=== PATIENT | male | born 1990 | race Caucasian/White ===

== ENCOUNTER 2017-07-31 14:10 | Emergency (ER) | payer BC ==
[2017-07-31] MEDS ORDERED: cefTRIAXone VIAL(*) 250 MG VIAL IM ONE (15:58)
--- NOTE | 2017-07-31 15:58 | UC ---
Complaint Male HPI - HPI Summary HPI Summary: C/O dysuria with penile D/C. Some urgency. Going on 2-3 days. - History of Current Complaint Chief Complaint: UCSTDScreening Stated Complaint: PERSONAL Time Seen by Provider: 07/31/17 15:49 Hx Obtained From: Patient Onset/Duration: Sudden Onset, Lasting Days - 2-3, Still Present Timing: Intermittent Severity Initially: Mild Severity Currently: Mild Location: Penis Character: Burning Aggravating Factor(s): Voiding Alleviating Factor(s): Nothing Associated Signs And Symptoms: Positive: Diaphoresis, Nausea, Penile Discharge. Negative: Back Pain, Fever, Hematuria - Allergies/Home Medications Allergies/Adverse Reactions: Allergies Allergy/AdvReac Type Severity Reaction Status Date / Time No Known Allergies Allergy Verified 07/31/17 15:10 PMH/Surg Hx/FS Hx/Imm Hx Previously Healthy: Yes - Surgical History Surgical History: None - Family History Known Family History: Positive: Cardiac Disease - Social History Occupation: Unemployed Lives: With Family Alcohol Use: Weekly Substance Use Type: None Smoking Status (MU): Never Smoked Tobacco Review of Systems ENT: Sore Throat Genitourinary: Dysuria, Vaginal/Penile Discharge Is Patient Immunocompromised?: No All Other Systems Reviewed And Are Negative: Yes Physical Exam Triage Information Reviewed: Yes Appearance: Well-Appearing, No Pain Distress, Thin Vital Signs: Initial Vital Signs Temp 99.5 F 07/31/17 15:06 Pulse 85 07/31/17 15:06 Resp 16 07/31/17 15:06 BP 114/73 07/31/17 15:06 Pulse Ox 100 07/31/17 15:06 Vital Signs Reviewed: Yes Eyes: Positive: Conjunctiva Clear ENT: Positive: Pharyngeal erythema Neck exam: Normal Respiratory Exam: Normal Cardiovascular Exam: Normal Abdominal Exam: Normal Abdomen Description: Positive: Other: - : testes normal. No urethral discharge. Bowel Sounds: Positive: Present Musculoskeletal Exam: Normal Neurological Exam: Normal Psychological Exam: Normal Skin Exam: Normal Complaint Male Course/Dx - Differential Dx/Diagnosis Differential Diagnosis/HQI/PQRI: Epididymitis, Prostatitis, Urinary Tract Infection Provider Diagnoses: Urethritis Discharge - Discharge Plan Condition: Stable Disposition: HOME Prescriptions: Azithromycin 1,000 mg PO ONCE #2 tab Patient Education Materials: Sexually Transmitted Diseases (ED), Condom Use (ED ), Chlamydia (ED), Ceftriaxone (By injection), Azithromycin (By mouth) Referrals: Margie Umanzor MD [Primary Care Provider] -
[2017-07-31] MEDS ORDERED: Lidocaine 1% MPF* 2 ML VIAL ONE (16:03)
--- NOTE | 2017-08-02 14:27 | UC ---
- Progress Note Progress Note: PLEASE CALL THE PT. WITH THE LAB REPORT + CHLAMYDIA PT. ALREADY HAD TREATMENT WITH ZITHROMAX
== END 2017-07-31 16:29 | disposition home or self-care (01) ==
LOC: UCCORT 14:10
DX: N34.2 Other urethritis (principal); J02.9 Acute pharyngitis, unspecified
CPT/HCPCS: 81003; 87491; 87591; 96372; 99202; G0463; J0696

== ENCOUNTER 2017-09-19 11:52 | Emergency (ER) | payer BC ==
[2017-09-19 13:07] VITALS: BP 115/72
--- NOTE | 2017-09-19 13:16 | UC ---
Complaint Male HPI - HPI Summary HPI Summary: 27 y/o male presents to the urgent care c/o hives and a rash that itches a lot on his both arms and neck. Pt reports he was[place] a [employer] on Tuesday and he slept over. He woke up w/ the rash. Pt also reports he was here at the clinic on 07/31/2017 and Dx w/ Chlamydia and was Tx. However He thinks his girlfriend didn't take the Tx because the clear penile discharge returned for the past week w/ a burning sensation when he urinates - History of Current Complaint Chief Complaint: UCSkin Stated Complaint: PERSONAL/ARMS/NECK SKIN COMPLAINT Time Seen by Provider: 09/19/17 13:14 Hx Obtained From: Patient Onset/Duration: Gradual Onset, Lasting Days - 1 week, Still Present, Worse Since - today Timing: Constant Severity Initially: Mild Severity Currently: Moderate Pain Intensity: 0 Pain Scale Used: 0-10 Numeric Location: Penis - penile clear discharge Character: Burning Aggravating Factor(s): Voiding Alleviating Factor(s): Nothing Associated Signs And Symptoms: Positive: Nausea, Penile Discharge - clear. Negative: Diaphoresis, Back Pain, Fever, Hematuria, Dysuria, Rectal Pain, Vomiting(# Of Episodes =), Penile Swelling - Risk Factors Testicular Torsion: Negative - Allergies/Home Medications Allergies/Adverse Reactions: Allergies Allergy/AdvReac Type Severity Reaction Status Date / Time No Known Allergies Allergy Verified 09/19/17 12:59 Home Medications: Home Medications Miconazole Nitrate [Antifungal] 2 % EX BID 09/19/17 [History Confirmed 09/19/17] PMH/Surg Hx/FS Hx/Imm Hx Previously Healthy: Yes Other GI/ History: Chlamydia - Surgical History Surgical History: None - Family History Known Family History: Positive: Cardiac Disease - Social History Occupation: Student Lives: With Family Alcohol Use: Weekly Substance Use Type: None Smoking Status (MU): Current Some Day Smoker Type: Cigarettes Amount Used/How Often: rare use - Immunization History Vaccination Up to Date: Yes Review of Systems Constitutional: Negative Skin: Rash - B/L arms and neck Eyes: Negative ENT: Negative Respiratory: Negative Cardiovascular: Negative Gastrointestinal: Negative Genitourinary: Frequency, Other - burning on urination Motor: Negative Neurovascular: Negative Musculoskeletal: Negative Neurological: Negative Psychological: Negative Is Patient Immunocompromised?: No All Other Systems Reviewed And Are Negative: Yes Physical Exam - Summary Physical Exam Summary: Vital signs: reviewed General: well developed, well nourished male sitting in the examining table w/o any apparent distress. Head: Normocephalic, no lesions. Eyes: PERRLA, EOM's full, conjunctiva clear, fundi grossly normal. Ears: EAC's clear, TM's normal. Nose: Mucosa normal, no obstruction. Throat: Clear, no exudates, no lesions. Neck: Supple, no masses, no thyromegaly, no bruits. Chest: Lungs clear, no rales, no rhonchi, no wheezes. Heart: RR, no murmurs, no rubs, no gallops. Abdomen: Soft, no tenderness, no masses, BS normal. : Normal, no lesions, clear penile discahrge, non tender to palpation no hernias noted. Back: Normal curvature, no tenderness. Extremities: FROM, no deformities, no edema, no erythema. Neuro: Physiological, no localizing findings. Skin: Normal, no rashes, no lesions noted. Triage Information Reviewed: Yes Vital Signs: Initial Vital Signs Temp 98.9 F 09/19/17 13:00 Pulse 99 09/19/17 13:00 Resp 16 09/19/17 13:00 BP 115/72 09/19/17 13:00 Pulse Ox 99 09/19/17 13:00 Complaint Male Course/Dx - Differential Dx/Diagnosis Differential Diagnosis/HQI/PQRI: Prostatitis, Ureteral Calculi, Urinary Tract Infection, Other - urethiritis Provider Diagnoses: 1-Urethritis, chlamydia. 2-Screning for STD's. 3-bed bugs Discharge - Discharge Plan Condition: Stable Disposition: HOME Prescriptions: diPHENhydraMINE PO* [Benadryl PO 25 MG TAB*] 25 mg PO TID PRN #15 tab PRN Reason: pruritus Hydrocortisone/Pramoxine [Hydrocortisone Acetate/Pr] 1 cre AL BID #1 tube Omeprazole CAP* [Prilosec CAP* 20 MG] 20 mg PO DAILY #30 cap Patient Education Materials: Chlamydia (ED), Bed Bugs (ED) Referrals: Margie Umanzor MD [Primary Care Provider] - 1 Week Additional Instructions: 1-Prophylactic Tx for chlamydia given today. 2-Urine sent to lab to recheck chlamydia completely cleared off. If any abnormality, you will be notified for further treatment. 3-Take Bendryl PO and apply Hydrocortisone topical cream to alleviate itchiness. Please clean all you bedding and clothings w/ hot water 3-If symptoms do not improve please return to the urgent care or f/u with your PCP.
[2017-09-19] MEDS ORDERED: Azithromycin TAB* 250 MG PO ONE (13:51)
--- NOTE | 2017-09-21 15:59 | UC ---
- Progress Note Progress Note: please call the pt. with the lab results + Chlamydia he was already treated with zithromax please have his partner bee seen for treatment
== END 2017-09-19 14:13 | disposition home or self-care (01) ==
LOC: UCCORT 11:52
DX: A56.01 Chlamydial cystitis and urethritis (principal); S40.862A Insect bite (nonvenomous) of left upper arm, initial encounter; S40.861A Insect bite (nonvenomous) of right upper arm, initial encounter; S10.96XA Insect bite of unspecified part of neck, initial encounter; W57.XXXA Bitten or stung by nonvenomous insect and other nonvenomous arthropods, initial encounter; Y93.84 Activity, sleeping; Y92.89 Other specified places as the place of occurrence of the external cause; Z11.3 Encounter for screening for infections with a predominantly sexual mode of transmission; F17.210 Nicotine dependence, cigarettes, uncomplicated
CPT/HCPCS: 81003; 87491; 87591; 99212; A9270-GY; G0463